=== PATIENT | female | born 1945 | race Caucasian/White ===

== ENCOUNTER 2018-05-15 13:24 | Inpatient (IN) | payer MEDICARE, OTHER ==
[2018-05-15] MEDS: LABETALOL HCL 20MG INJ IV ×2 (14:30→19:23)
[2018-05-15] MEDS: SOD CHLORIDE 0.9% 500 ML IV (14:30)
[2018-05-15 14:32] LABS: ADD MAN DIFF? NO
[2018-05-15 14:34] LABS: BASOPHIL # 0.1 10^3/ul (0.0-0.1); BASOPHILS % 0.5 % (0.0-2.0); EOSINOPHILS # 0.6 10^3/ul (0.0-0.5); EOSINOPHILS % 6.2 % (0.0-7.0); HEMATOCRIT 38.5 % (37.0-47.0); LYMPHOCYTES # 1.9 10^3/ul (0.8-2.9); MEAN CORPUSCULAR HEMOGLOBIN 26.6 pg (29.0-33.0); MEAN CORPUSCULAR HGB CONC 31.2 g/dl (32.0-37.0); MEAN CORPUSCULAR VOLUME 85.4 fl (82.0-101.0); MEAN PLATELET VOLUME 12.4 fl (7.4-10.4); MONOCYTE # 0.5 10^3/ul (0.3-0.9); MONOCYTES % 5.6 % (0.0-11.0); NEUTROPHIL # 6.3 10^3/ul (1.6-7.5); NEUTROPHILS % 67.5 % (39.0-77.0); PLATELET COUNT 140 10^3/UL (140-415); RED BLOOD COUNT 4.51 10^6/ul (4.20-5.40); RED CELL DISTRIBUTION WIDTH 14.6 % (11.5-14.5)
[2018-05-15 14:34] LABS: WHITE BLOOD COUNT 9.3 10^3/ul (4.8-10.8)
[2018-05-15 14:35] LABS: ADD UMIC NO; UR ASCORBIC ACID NEGATIVE (NEGATIVE); UR BILIRUBIN (Dip) NEGATIVE (NEGATIVE); UR BLOOD (Dip) NEGATIVE (NEGATIVE); UR CLARITY CLEAR (CLEAR); UR COLOR COLORLESS (YELLOW); UR GLUCOSE (Dip) 3+ mg/dL (NEGATIVE); UR KETONES (Dip) NEGATIVE (NEGATIVE); UR LEUKOCYTE ESTERASE (Dip) NEGATIVE Leu/ul (NEGATIVE); UR NITRITE (Dip) NEGATIVE (NEGATIVE); UR SPECIFIC GRAVITY (Dip) 1.002 (1.003-1.030); UR TOTAL PROTEIN (Dip) NEGATIVE (NEGATIVE); UR UROBILINOGEN (Dip) NEGATIVE (NEGATIVE)
[2018-05-15 14:54] LABS: ANION GAP 17 (8-16); BLOOD UREA NITROGEN 10 mg/dl (7-20); CALCIUM 10.5 mg/dl (8.4-10.2); CARBON DIOXIDE 25 mmol/L (21-31); CHLORIDE 103 mmol/L (97-110); CREATININE 0.56 mg/dl (0.44-1.00); GLUCOSE 222 mg/dl (70-220); POTASSIUM 4.8 mmol/L (3.5-5.1); SODIUM 140 mmol/L (135-144)
[2018-05-15 15:09] LABS: TROPONIN-I < 0.012 ng/ml (0.000-0.120)
[2018-05-15] MEDS: AMLODIPINE 10 MG TAB PO (18:40)
[2018-05-15] MEDS: ACETAMINOPHEN 325 MG TAB PO (21:44)
[2018-05-15] MEDS: SUMATRIPTAN 6 MG/0.5 ML INJ SC (23:16)
[2018-05-16] MEDS ORDERED: DEXTROSE 50% 50 ML SYRINGE IV ×2 (09:00)
[2018-05-16] MEDS ORDERED: morphine 2 MG INJ IV (09:00)
[2018-05-16] MEDS ORDERED: GLUCOSE GEL 15 GRAM TUBE BUCCAL (09:00)
[2018-05-16] MEDS ORDERED: NACL 0.9% 3 ML SYG IV (09:00)
[2018-05-16] MEDS ORDERED: GLUCAGON 1 MG INJ IM (09:00)
[2018-05-16] MEDS ORDERED: ONDANSETRON 4 MG INJ IV (09:00)
[2018-05-16] MEDS ORDERED: ALBUTEROL/IPRATROPIUM (NEB) 3 ML AMP HHN (09:00)
[2018-05-16] MEDS ORDERED: GLUCOSE GEL 15 GRAM TUBE PO ×2 (09:00)
[2018-05-16] MEDS: FUROSEMIDE 40 MG TAB PO (09:37)
[2018-05-16] MEDS: metFORMIN 500 MG TAB PO ×2 (09:38→17:22)
[2018-05-16] MEDS: LOSARTAN 50 MG TAB PO (09:38)
[2018-05-16] MEDS: FERROUS SULFATE (EC) 325 MG TAB PO (09:38)
[2018-05-16] MEDS: GABAPENTIN 100 MG CAP PO ×2 (09:38→20:20)
[2018-05-16] MEDS: HEPARIN 5,000 UNIT/0.5 ML VIAL SC ×2 (09:46→20:27)
[2018-05-16 09:54] LABS: ADD MAN DIFF? NO
[2018-05-16 09:56] LABS: BASOPHIL # 0.1 10^3/ul (0.0-0.1); BASOPHILS % 0.6 % (0.0-2.0); EOSINOPHILS # 0.5 10^3/ul (0.0-0.5); EOSINOPHILS % 6.2 % (0.0-7.0); HEMATOCRIT 39.6 % (37.0-47.0); HEMOGLOBIN 12.3 g/dl (12.0-16.0); LYMPHOCYTES % 23.3 % (15.0-51.0); MEAN CORPUSCULAR HEMOGLOBIN 26.5 pg (29.0-33.0); MEAN CORPUSCULAR HGB CONC 31.1 g/dl (32.0-37.0); MEAN CORPUSCULAR VOLUME 85.2 fl (82.0-101.0); MEAN PLATELET VOLUME 12.1 fl (7.4-10.4); MONOCYTE # 0.4 10^3/ul (0.3-0.9); MONOCYTES % 4.9 % (0.0-11.0); NEUTROPHIL # 5.6 10^3/ul (1.6-7.5); NEUTROPHILS % 64.8 % (39.0-77.0); PLATELET COUNT 173 10^3/UL (140-415); RED BLOOD COUNT 4.65 10^6/ul (4.20-5.40); RED CELL DISTRIBUTION WIDTH 14.9 % (11.5-14.5)
[2018-05-16 09:56] LABS: WHITE BLOOD COUNT 8.7 10^3/ul (4.8-10.8)
[2018-05-16 10:24] LABS: ALANINE AMINOTRANSFERASE 68 IU/L (13-69); ALBUMIN 4.6 g/dl (3.3-4.9); ALBUMIN/GLOBULIN RATIO 1.48; ALKALINE PHOSPHATASE 105 IU/L (42-121); ANION GAP 21 (8-16); ASPARTATE AMINO TRANSFERASE 54 IU/L (15-46); BILIRUBIN,INDIRECT 1.1 mg/dl (0-1.1); BILIRUBIN,TOTAL 1.1 mg/dl (0.2-1.3); BLOOD UREA NITROGEN 11 mg/dl (7-20); CALCIUM 10.4 mg/dl (8.4-10.2); CARBON DIOXIDE 26 mmol/L (21-31); CHLORIDE 99 mmol/L (97-110); CHOL/HDL RATIO 3.6 RATIO; CHOLESTEROL 149 mg/dl (100-200); CREATININE 0.57 mg/dl (0.44-1.00); GLUCOSE 261 mg/dl (70-220); HDL CHOLESTEROL 41 mg/dl (33-92); LDL CHOLESTEROL,CALCULATED 57 mg/dl; POTASSIUM 4.7 mmol/L (3.5-5.1); SODIUM 141 mmol/L (135-144); TOTAL PROTEIN 7.7 g/dl (6.1-8.1); TRIGLYCERIDES 253 mg/dl (0-149)
[2018-05-16] MEDS: AMLODIPINE 10 MG TAB PO (11:28)
[2018-05-16] MEDS: INSULIN ASPART [NOVOLOG] 3 ML PEN SC ×4 (12:36→23:17)
[2018-05-16 13:56] LABS: HEMOGLOBIN A1C 6.5 % (0-5.9)
[2018-05-16] MEDS: hydrALAzine 20 MG INJ IV (15:53)
[2018-05-16] MEDS: INSULIN GLARGINE [LANtus] 3 ML PEN SC (20:26)
[2018-05-17] MEDS: ACCU-CHEK XX (02:02)
[2018-05-17] MEDS: INSULIN ASPART [NOVOLOG] 3 ML PEN SC (07:50)
[2018-05-17] MEDS: FERROUS SULFATE (EC) 325 MG TAB PO (08:37)
[2018-05-17] MEDS: FUROSEMIDE 40 MG TAB PO (08:37)
[2018-05-17] MEDS: LOSARTAN 50 MG TAB PO (08:37)
[2018-05-17] MEDS: GABAPENTIN 100 MG CAP PO (08:37)
[2018-05-17] MEDS: metFORMIN 500 MG TAB PO (08:38)
[2018-05-17] MEDS: AMLODIPINE 10 MG TAB PO (08:38)
[2018-05-17] MEDS: HEPARIN 5,000 UNIT/0.5 ML VIAL SC (08:40)
== END 2018-05-17 10:30 | disposition home or self-care (01) | DRG 305 ==
LOC: E/R 13:24 → TEL 19:41
DX: I16.1 Hypertensive emergency (principal); E11.65 Type 2 diabetes mellitus with hyperglycemia; R42 Dizziness and giddiness; Z79.4 Long term (current) use of insulin
CPT/HCPCS: 36415; 70450; 71045; 80048; 80053; 80061; 81003; 82962; 83036; 84443; 84484; 85025; 93005; 93880; 96374; 96376; 99291-25